=== PATIENT | female | born 1965 | race Caucasian/White ===

== ENCOUNTER → 2017-07-01 | Day surgery (SDC) | payer OTHER ==
--- NOTE | 2017-06-30 17:55 | History & Physical Pre-Op ---
General Information and HPI History of Present Illness: 51-year-old 2 para 2 with chronic menorrhagia who presents for D&C hysteroscopy NovaSure ablation. Her past medical history is significant for DVT on Coumadin secondary to factor V Leiden deficiency.; She's been off Coumadin now for 4 days. Allergies/Medications Allergies: Coded Allergies: No Known Allergies (06/29/17) Home Med list Ascorbate Calcium (Vitamin C) (Unknown Strength) TABLET (Unknown Dose) PO DAILY SUPPLEMENT (Reported) Cholecalciferol (Vitamin D3) (Vitamin D-3) (Unknown Strength) CAPSULE (Unknown Dose) PO DAILY SUPPLEMENT (Reported) Dicyclomine HCl (Bentyl) 20 MG TABLET 1 TAB PO Q6H PRN ABDOMINAL PAIN Multivitamin (Multi-Day Vitamins) 1 EACH TABLET 1 TAB PO DAILY SUPPLEMENT ( Reported) Saccharomyces Boulardii (Probiotic) (Unknown Strength) CAPSULE (Unknown Dose) PO DAILY PROBIOTIC (Reported) Tramadol HCl 50 MG TABLET 1-2 TAB PO Q6 PRN pain Vitamin E Acid Succinate (Vitamin E) (Unknown Strength) TABLET (Unknown Dose) PO DAILY SUPPLEMENT (Reported) Warfarin Sodium (Coumadin) 10 MG TABLET 10 MG PO AD BLOOD THINNER (Reported) Warfarin Sodium (Coumadin) 2.5 MG TABLET 12.5 MG PO AD BLOOD THINNER ( Reported) Past History Medical History Blood Disorders: DVT, FACTOR 5 LEIDEN Tetanus Vaccine: 05/15/12 Surgical History Pertinent Surgical History: breast biopsy Review of Systems Review of Systems Constitutional: Reports: no symptoms. EENTM: Reports: no symptoms. Cardiovascular: Reports: no symptoms. Respiratory: Reports: no symptoms. GI: Reports: no symptoms. Genitourinary: Reports: no symptoms. Musculoskeletal: Reports: no symptoms. Skin: Reports: no symptoms. Neurological/Psychological: Reports: no symptoms. Hematologic/Endocrine: Reports: no symptoms. Immunologic/Allergic: Reports: no symptoms. All Other Systems: Reviewed and Negative Exam & Diagnostic Data Last 24 Hrs of Vital Signs/I&O Vital signs stable Physical Exam: HEENT: Normocephalic atraumatic Chest: Clear to auscultation bilaterally Cardiovascular: Normal S1, S2 Abdomen: Soft and obese nontender no mass Pelvic: Deferred to the OR Extremities: Bilateral edema Assessment/Plan Assessment/Plan: Chronic menorrhagia Plan: D&C hysteroscopy and NovaSure ablation i As Ranked By This Provider Problem List: 1. Menorrhagia
[~2017-07-01] VITALS: Ht 175.3 cm; Wt 98.4 kg
[~2017-07-01] MED LIST: BENTYL20 M1 PO; COUMADIN10 M1 PO; COUMADIN2.5 M1 PO; MULTI-DAY VITA1 EACH PO; PROBIOTIC250 MG PO; TRAMADOL HCL50 M1 PO; VITAMIN C500 M6 PO; VITAMIN D-32000 UNI1 PO; VITAMIN E100 UNIT PO
[2017-07-01 08:13] LABS: PT 11.9 SEC (9.4-12.5)
--- NOTE | 2017-07-01 10:29 | Operative Report ---
Operative/Inv Procedure Report Surgery Date: 07/01/17 Name of Procedure: D&C hysteroscopy with NovaSure ablation Pre-Operative Diagnosis: Menorrhagia Post-Operative Diagnosis: Same Estimated Blood Loss: scant Surgeon/Pool Installer: Ced Beal MD Anesthesia: local monitored anesthesi Operative/Procedure Note Note: The patient was brought to the operating room placed on the OR table in the dorsal supine position. She was given and Venodyne boots and activated. She was repositioned modified dorsal lithotomy after adequate anesthesia. She was prepped and draped in usual sterile fashion. Examination under anesthesia revealed a uterus which was in the retroverted position. A weighted speculum was inserted into the vagina with the help of a Martínez retractor single-tooth tenaculum was attached and delivered to the cervix. Cervix was injected with 1% lidocaine with epinephrine to have cc in each quadrant. An endocervical curettage is performed. The uterus wasn't sounded to 10 cm. The cervix was serially dilated to accommodate the hysteroscope. The hysteroscope was placed into the uterus and the saline infusion was activated. Shaggy endometrium was noted throughout but there were no polyps or fibroids. The hysteroscope was removed and the cervix was further dilated. Endometrial curettage was then performed revealing a moderate amount of tissue. At this point the NovaSure was primed and placed into the uterus. The cavity assessment passed and the NovaSure begun for a depth of 6 cm and a width of 4-1/2 cm at 189 W of power for approximately 80 seconds. At the end of the NovaSure was removed intact. Hemostasis was verified the tenaculum and weighted speculum were removed patient was then awakened and sent to recovery in good condition. All needle, sponge, and instrument counts were correct at the end of the procedure 2.
== END ==
LOC: STS 02:55
PROVIDERS: Obstetrics & Gynecology
DX: N92.1 Excessive and frequent menstruation with irregular cycle (principal); N85.4 Malposition of uterus; Z86.718 Personal history of other venous thrombosis and embolism; Z79.01 Long term (current) use of anticoagulants; D68.51 Activated protein C resistance
CPT/HCPCS: 36415; 81025; J2250; J2405